=== PATIENT | female | born 1990 | race Caucasian/White ===

== ENCOUNTER 2016-04-17 17:02 | Outpatient (CLI) | payer MEDICAID ==
[2016-04-17 17:37] LABS: APPEARANCE,URINE CLEAR; BILIRUBIN,URINE NEGATIVE (NEGATIVE); GLUCOSE, URINE NEGATIVE (NEGATIVE); KETONES,URINE NEGATIVE (NEGATIVE); LEUKOCYTE ESTERASE,URINE NEGATIVE (NEGATIVE); NITRITE,URINE NEGATIVE (NEGATIVE); PROTEIN,URINE NEGATIVE (NEGATIVE); URINE SPECIFIC GRAVITY 1.003; UROBILINOGEN,URINE NEGATIVE mg/dL (<2.0)
[2016-04-17 17:55] LABS: URINE BARBITURATES SCREEN NEGATIVE; URINE METHADONE SCREEN NEGATIVE; URINE OPIATES LOW NEGATIVE; URINE PHENCYCLIDINE SCREEN NEGATIVE
--- NOTE | 2016-04-17 18:01 | L&D Flow Sheet ---
LD Flowsheet Datetime Report Generated by CPN: 04/17/2016 18:00 Datetime: 04/17/2016 17:53 NBP Sys/Destiny/Mean (mmHg): 96 (QS system process) : 49 (QS system process) : 70 (QS system process) Pulse: 77 (QS system process) Datetime: 04/17/2016 17:22 Level of Consciousness: Fully Conscious (Lucy Bellavance, RNC) DTR's/Clonus: DTRs 2+; No Clonus (Lucy Bellavance, RNC) Headache: Denies (Lucy Bellavance, RNC) Breath Sounds, Left: Clear and Equal (Lucy Bellavance, RNC) Breath Sounds, Right: Clear and Equal (Lucy Bellavance, RNC) Nausea/Vomiting: Denies (Lucy Bellavance, RNC) RUQ Epigastric Pain: Denies (Lucy Bellavance, RNC) Datetime: 04/17/2016 17:21 NBP Sys/Destiny/Mean (mmHg): 93 (QS system process) : 56 (QS system process) : 69 (QS system process) Pulse: 71 (QS system process) Respirations: 16 (Lucy Bellavance, RNC) Temperature (F): 97.5 (Lucy Bellavance, RNC) Temperature (C): 36.4 (QS system process) Temperature Route: Oral (Lucy Bellavance, RNC) Monitor Mode: External (Lucy Bellavance, RNC) Monitor Interventions for UA: [place] Adjusted (Lucy Bellavance, RNC) Resting Tone (Palpate): Relaxed (Lucy Bellavance, RNC) Monitor Mode: External US (Lucy Bellavance, RNC) Monitor Interventions for FHR: Ultrasound Adjusted (Lucy Bellavance, RNC) FHR Baseline Rate : 125 (Lucy Bellavance, RNC) FHR Baseline Changes: No Baseline Change (Lucy Bellavance, RNC) Variability: Moderate 6-25 bpm (Lucy Bellavance, RNC) Accelerations: 10X10 (Lucy Bellavance, RNC) Decelerations: None (Lucy Garcia, KIANC)
[2016-04-17] MEDS ORDERED: HYDROXYZINE PAMOATE 50 MG CAPSULE ONE (18:32)
[2016-04-17] MEDS ORDERED: NIFEDIPINE 10 MG CAPSULE ONE (19:35)
[2016-04-17] MEDS ORDERED: FLUCONAZOLE 100 MG TABLET ONE (19:35)
[2016-04-17] MEDS ORDERED: FLUCONAZOLE 100 MG TABLET PO ONE (19:45)
[2016-04-17] MEDS ORDERED: NIFEDIPINE 10 MG CAPSULE PO ONE (19:45)
--- NOTE | 2016-04-17 20:01 | L&D Flow Sheet ---
LD Flowsheet Datetime Report Generated by CPN: 04/17/2016 20:00 Datetime: 04/17/2016 19:53 NBP Sys/Destiny/Mean (mmHg): 101 (QS system process) : 57 (QS system process) : 74 (QS system process) Pulse: 83 (QS system process) LaborFlag: Antepartum (QS system process) Datetime: 04/17/2016 19:42 Medication Comments: Diflucan 150mg PO; Procardia 10mg PO (Adamaris Errichiello, RN) Datetime: 04/17/2016 19:38 NBP Sys/Destiny/Mean (mmHg): 102 (QS system process) : 57 (QS system process) : 74 (QS system process) Pulse: 81 (QS system process) LaborFlag: Antepartum (QS system process) Datetime: 04/17/2016 19:23 NBP Sys/Destiny/Mean (mmHg): 111 (QS system process) : 59 (QS system process) : 81 (QS system process) Pulse: 75 (QS system process) LaborFlag: Antepartum (QS system process) Datetime: 04/17/2016 19:20 Communication: Provider at Bedside (Lucy Bellavance, RNC) Communication Comments: Orders received for Procardia 10mg PO, Diflucan 150mg PO (Lucy Bellavance, RNC) Datetime: 04/17/2016 19:19 Dilatation (cm): 0.0 (Lucy Bellavance, RNC) Effacement (%): 50 (Lucy Bellavance, RNC) Station: -2 (Lucy Bellavance, RNC) Exam by: Dr Pineda (Lucy Bellavance, RNC) Datetime: 04/17/2016 19:13 Communication Comments: report to md of wet prep results (Lucy Bellavance, RNC) Datetime: 04/17/2016 19:08 NBP Sys/Destiny/Mean (mmHg): 96 (QS system process) : 53 (QS system process) : 69 (QS system process) Pulse: 84 (QS system process) Respirations: 18 (Lucy Bellavance, RNC) Monitor Mode: External (Lucy Bellavance, RNC) Monitor Interventions for UA: [place] Adjusted (Lucy Bellavance, RNC) Frequency (min): 4-6 (Lucy Bellavance, RNC) Quality: Mild (Lucy Bellavance, RNC) Duration (sec): 50-60 (Lucy Bellavance, RNC) Duration Criteria: Less than Two 120 Second Contractions (Lucy Bellavance, RNC) Pattern: Normal: <= 5 Contractions in 10 Minutes (Lucy Bellavance, RNC) Resting Tone (Palpate): Relaxed (Lucy Bellavance, RNC) Monitor Mode: External US (Lucy Bellavance, RNC) Monitor Interventions for FHR: Ultrasound Adjusted (Lucy Bellavance, RNC) FHR Baseline Rate : 125 (Lucy Bellavance, RNC) FHR Baseline Changes: No Baseline Change (Lucy Bellavance, RNC) Variability: Moderate 6-25 bpm (Lucy Bellavance, RNC) Accelerations: 15X15 (Lucy Bellavance, RNC) Decelerations: None (Lucy Bellavance, RNC) Patient Position/Activity: Semi-Fowlers (Lucy Bellavance, RNC) Comfort Measures: Breathing/Relaxation (Lucy Bellavance, RNC) LaborFlag: Antepartum (QS system process) Datetime: 04/17/2016 18:53 NBP Sys/Destiny/Mean (mmHg): 102 (QS system process) : 57 (QS system process) : 76 (QS system process) Pulse: 71 (QS system process) LaborFlag: Antepartum (QS system process) Datetime: 04/17/2016 18:39 Respirations: 18 (Lucy Bellavance, RNC) Monitor Mode: External (Lucy Bellavance, RNC) Monitor Interventions for UA: [place] Adjusted (Lucy Bellavance, RNC) Frequency (min): 4-6 (Lucy Bellavance, RNC) Quality: Mild (Lucy Bellavance, RNC) Duration (sec): 50-60 (Lucy Bellavance, RNC) Duration Criteria: Less than Two 120 Second Contractions (Lucy Bellavance, RNC) Pattern: Normal: <= 5 Contractions in 10 Minutes (Lucy Bellavance, RNC) Resting Tone (Palpate): Relaxed (Lucy Bellavance, RNC) Monitor Mode: External US (Lucy Bellavance, RNC) Monitor Interventions for FHR: Ultrasound Adjusted (Lucy Bellavance, RNC) FHR Baseline Rate : 125 (Lucy Bellavance, RNC) FHR Baseline Changes: No Baseline Change (Lucy Bellavance, RNC) Variability: Moderate 6-25 bpm (Lucy Bellavance, RNC) Accelerations: 15X15 (Lucy Bellavance, RNC) Decelerations: None (Lucy Bellavance, RNC) Pain Assessment Comments: crampy (Lucy Bellavance, RNC) Vaginal Exam Comments: spec exam done for wet prep (Lucy Bellavance, RNC) Analgesics/Sedatives: vistiril 50 mg po (Lucy Bellavance, RNC) Procedures: Sterile Speculum Exam (Lucy Bellavance, RNC) Patient Position/Activity: Semi-Fowlers (Lucy Bellavance, RNC) Comfort Measures: Breathing/Relaxation (Lucy Bellavance, RNC) LaborFlag: Antepartum (QS system process) Datetime: 04/17/2016 18:38 NBP Sys/Destiny/Mean (mmHg): 94 (QS system process) : 56 (QS system process) : 70 (QS system process) Pulse: 84 (QS system process) LaborFlag: Antepartum (QS system process) Datetime: 04/17/2016 18:22 NBP Sys/Destiny/Mean (mmHg): 100 (QS system process) : 58 (QS system process) : 75 (QS system process) Pulse: 78 (QS system process) LaborFlag: Antepartum (QS system process) Datetime: 04/17/2016 18:07 NBP Sys/Destiny/Mean (mmHg): 99 (QS system process) : 55 (QS system process) : 72 (QS system process) Pulse: 71 (QS system process) LaborFlag: Antepartum (QS system process)
[2016-04-17] MEDS ORDERED: ZOLPIDEM TARTRATE 5 MG TABLET PO ONE (21:14)
[2016-04-17] MEDS ORDERED: ZOLPIDEM TARTRATE 5 MG TABLET ONE (21:19)
[2016-04-18] MEDS ORDERED: FLUCONAZOLE 100 MG TABLET PO SCH (10:00)
--- NOTE | 2016-04-26 10:05 | Non Stress Test Report ---
Non Stress Test Datetime Report Generated by CPN: 04/26/2016 10:05 DEMOGRAPHIC Test Number: 1 EGA NST: 34.5 INDICATION Indication for Study: Ordered by Provider URINE RESULTS Urine Protein, NST: Negative Urine Ketones - NST: Negative Urine Glucose - NST: Negative Urine Blood - NST: Negative MONITORING Monitor Explained: Monitor Explained; Test Explained; Patient Verbalized Understanding Time on Monitor: 04/17/2016 17:18 Time off Monitor: 04/17/2016 21:12 NST Duration: 234 NST INTERVENTIONS NST Interventions: PO Hydration; Other Physician Notified NST: Dr Neilsen BABY A: [id number] BABY A Movement : Present Contraction Frequency : irregular FHR Baseline : 145 Accelerations : 15X15 Decelerations : None Variability : Moderate 6-25bpm NST Review: Meets Criteria for Reactive NST NST Review and Verified By : Magalis Ivy RN NST Results: Reactive NST REPORT Report Trigger: Send Report
== END 2016-04-17 21:28 | disposition home or self-care (01) ==
LOC: LC 17:02
PROVIDERS: ATTEND Specialist
PROC: 4A1HXCZ Monitoring of Products of Conception, Cardiac Rate, External Approach (ICD-10-PCS; principal; 2016-04-17)
DX: Z34.93 Encounter for supervision of normal pregnancy, unspecified, third trimester (principal); Z36 Encounter for antenatal screening of mother; Z3A.34 34 weeks gestation of pregnancy
CPT/HCPCS: 59025; 87210; 81001; 80307; J3490 ×4

== ENCOUNTER 2016-04-26 10:07 | Inpatient (IN) | payer MEDICAID ==
[2016-04-26] MEDS ORDERED: RINGERS SOLUTION,LACTATED 1,000 ML IV ONE (10:33)
[2016-04-26 11:04] LABS: APPEARANCE,URINE CLEAR; BILIRUBIN,URINE NEGATIVE (NEGATIVE); GLUCOSE, URINE NEGATIVE (NEGATIVE); KETONES,URINE TRACE mg/dL (NEGATIVE); LEUKOCYTE ESTERASE,URINE NEGATIVE (NEGATIVE); NITRITE,URINE NEGATIVE (NEGATIVE); PROTEIN,URINE NEGATIVE (NEGATIVE); URINE SPECIFIC GRAVITY 1.015; UROBILINOGEN,URINE NEGATIVE mg/dL (<2.0)
[2016-04-26] MEDS ORDERED: HYDROXYZINE PAMOATE 50 MG CAPSULE PO ONE (11:09)
[2016-04-26] MEDS ORDERED: HYDROXYZINE PAMOATE 50 MG CAPSULE ONE (11:13)
[2016-04-26 11:25] LABS: URINE BARBITURATES SCREEN NEGATIVE; URINE METHADONE SCREEN NEGATIVE; URINE OPIATES LOW NEGATIVE; URINE PHENCYCLIDINE SCREEN NEGATIVE
--- NOTE | 2016-04-26 12:01 | L&D Flow Sheet ---
LD Flowsheet Datetime Report Generated by CPN: 04/26/2016 12:00 Datetime: 04/26/2016 11:24 Respirations: 16 (Pily Gilberto, RN) Patient Care IV/Blood Work: IV Infusing per Order; New IV Bag Hung; IV Bag Number @ 2 (Pily Gilberto, RN) LaborFlag: Antepartum (QS system process) Datetime: 04/26/2016 11:23 Vital Signs NBP Sys/Destiny/Mean (mmHg): 111 (QS system process) : 56 (QS system process) : 80 (QS system process) Pulse: 77 (QS system process) LaborFlag: Antepartum (QS system process) Datetime: 04/26/2016 11:19 Vaginal Bleeding: Small (Pily Macias RN) Vaginal Exam Comments: small amt of dark red blood noted on peripad (Pily Macias RN) Hygiene: Yuli Care; Peripad Changed (Pily Macias RN) I/O Interventions: Up to BR (Pily Gilberto, RN) Datetime: 04/26/2016 11:16 Medications Antiemetics/Antacids: Vistaril (mg) @ 50mg PO (Pily Gilberto, RN) Datetime: 04/26/2016 11:10 Communication Communication Comments: Dr Meng at [facility] reviewed. Plan of care discussed. Orders received for Vistaril 50mg PO x 1 dose now. (Pily Macias, RN) Datetime: 04/26/2016 11:00 Uterine Activity Monitor Mode: External; Palpation (Pily Macias, RN) Frequency (min): 2-3 (Pily Macias RN) Quality: Mild/Moderate (Pily Macias RN) Duration (sec): 70-90 (Pily Macias, RN) Resting Tone (Palpate): Relaxed (Pily Macias, RN) Assessment A Monitor Mode: External US (Pily Macias RN) FHR Baseline Rate : 135 (Pily Macias RN) Variability: Moderate 6-25 bpm (Pily Macias RN) Accelerations: 15X15 (Pily Macias RN) Decelerations: None (Pily Macias RN) Datetime: 04/26/2016 10:44 Vaginal Exam Dilatation (cm): 1.0 (Pily Macias RN) Effacement (%): 50 (Pily Macias RN) Station: -2 (Pily Macias RN) Exam by: Jono Macias RN (Pily Macias RN) Vaginal Bleeding: Small (Pily Gilberto, RN) Cervix, Consistency: Soft (Pily Gilberto, RN) Cervix, Position: Posterior (Pily Gilberto, RN) Datetime: 04/26/2016 10:41 Patient Care IV/Blood Work: IV Started; IV Bolus Started; IV Bag Number @ 1 (Pily Gilberto, RN) Datetime: 04/26/2016 10:35 Frequency (min): 3-5, period like cramping (Pily Macias, RN) Pain Pain Scale: 4 (Pily Gilberto, RN) Pain Presence: Intermittent (Pily Gilberto, RN) Pain Type: Contraction (Pily Gilberto, RN) Pain Location: Abdomen (Pily Gilberto, RN) Pain Goal: 2 (Pily Gilberto, RN) Pain Relief Measures: Comfort Measures (Pily Gilberto, RN) Pain Coping: Talking Through Contractions (Pily Gilberto, RN) Vaginal Bleeding: Moderate (Annotations: multiple small clots) (Pily Gilberto, RN) Maternal Assessment Level of Consciousness: Fully Conscious (Pily Gilberto, RN) Headache: Denies (Pily Gilberto, RN) Nausea/Vomiting: Denies (Pily Gilberto, RN) Teaching Instructional Method: Verbal; Patient Instructed; Family/Support Person Instructed; Verbalized Understanding (Pily Macias RN) Plan of Care: Plan of Care Discussed (Pily Macias RN) Unit Routine: [place] to Room; Call [place]; Bed; Phone/Cell Phone Use; Unit Personnel; Handwashing; Monitoring (Pily Macias RN) LaborFlag: Antepartum (QS system process) Datetime: 04/26/2016 10:26 Vital Signs NBP Sys/Destiny/Mean (mmHg): 117 (QS system process) : 70 (QS system process) : 88 (QS system process) Pulse: 82 (QS system process) Temperature (F): 97.9 (Pily Macias RN) Temperature (C): 36.6 (QS system process) Temperature Route: Oral (Pily Macias RN) LaborFlag: Antepartum (QS system process)
[2016-04-26] MEDS ORDERED: CEFAZOLIN SODIUM 1 GM in DEXTROSE 5%-WATER 50 ML IV PRN (13:00)
[2016-04-26 13:07] LABS: ABSOLUTE EOSINOPHILS # (AUTO) 0.3 10^3/uL (0.0-0.6); ABSOLUTE LYMPHOCYTES (AUTO) 1.5 10^3/uL (0.5-4.7); ABSOLUTE MONOCYTES (AUTO) 0.5 10^3/uL (0.1-1.4); ABSOLUTE NEUT (AUTO) 5.4 10^3/uL (1.7-8.2); BASOPHILS % (AUTO) 0.6 % (0-2); EOSINOPHILS % (AUTO) 3.4 % (0-6); HEMATOCRIT 31.2 % (36.0-47.0); HEMOGLOBIN 10.4 g/dL (12.0-15.5); LYMPHOCYTES % (AUTO) 19.2 % (13-45); MEAN CORPUSCULAR HEMOGLOBIN 29.3 pg (27.0-33.4); MEAN CORPUSCULAR HGB CONC 33.2 g/dL (32.0-36.0); MEAN CORPUSCULAR VOLUME 88 fl (80-97); MONOCYTES % (AUTO) 6.7 % (3-13); RED BLOOD COUNT 3.54 10^6/uL (3.72-5.28); RED CELL DISTRIBUTION WIDTH 14.6 % (11.5-14.0); SEGMENTED NEUTROPHILS % (AUTO) 70.1 % (42-78); WHITE BLOOD COUNT 7.7 10^3/uL (4.0-10.5)
[2016-04-26] MEDS ORDERED: CITRIC ACID/SODIUM CITRATE ORAL SOLN 15 ML UDCUP PO ONE (13:15)
--- NOTE | 2016-04-26 14:01 | L&D Flow Sheet ---
LD Flowsheet Datetime Report Generated by CPN: 04/26/2016 14:00 Datetime: 04/26/2016 13:30 Monitor Mode: External; Palpation (Pily Gilberto, RN) Frequency (min): 3-6 (Pily Gilberto, RN) Quality: Mild/Moderate (Pily Gilberto, RN) Duration (sec): 60-90 (Pily Gilberto, RN) Resting Tone (Palpate): Relaxed (Pily Gilberto, RN) Monitor Mode: External US (Pily Gilberto, RN) FHR Baseline Rate : 135 (Pily Gilberto, RN) Variability: Moderate 6-25 bpm (Pily Gilberto, RN) Accelerations: 15X15 (Pily Gilberto, RN) Decelerations: None (Pily Gilberto, RN) Datetime: 04/26/2016 13:29 Patient Care Comments: Abd clip for c/section (Pily Gilberto, RN) Datetime: 04/26/2016 13:00 Monitor Mode: External; Palpation (Pily Gilberto, RN) Frequency (min): 2-6 (Pily Gilberto, RN) Quality: Mild/Moderate (Pily Gilberto, RN) Duration (sec): 60-90 (Pily Gilberto, RN) Resting Tone (Palpate): Relaxed (Pily Gilberto, RN) Monitor Mode: External US (Pily Gilberto, RN) FHR Baseline Rate : 135 (Pily Gilberto, RN) Variability: Moderate 6-25 bpm (Pily Gilberto, RN) Accelerations: 15X15 (Pily Gilberto, RN) Decelerations: None (Pily Gilberto, RN) Datetime: 04/26/2016 12:58 Patient Care Comments: TEDS/SCD applied (Pily Macias RN) Procedure Type: Repeat c/section w/ BTL (Pily Macias RN) Procedure Verify: Correct Patient Identity; Correct Side and Site are Marked; Accurate Procedure Consent Form; Agreement on Procedure to be Done; Relevant Images and Results are Properly Labeled and Displayed; Addressed Need to Administer Antibiotics or Fluids for Irrigation; Safety Precautions Based on Patient History or Medication Use (Pily Macias RN) Datetime: 04/26/2016 12:47 NBP Sys/Destiny/Mean (mmHg): 104 (QS system process) : 60 (QS system process) : 77 (QS system process) Pulse: 70 (QS system process) Respirations: 18 (Pily Macias RN) LaborFlag: Antepartum (QS system process) Datetime: 04/26/2016 12:44 Communication Comments: Dr Meng called. Report including FHR, UC pattern, SVE, vaginal bleeding, pt has family en route from [facility]. Plan of care discussed. Admit for repeat c/section and BTL. Plan for c/section around 1500 d/t family, or sooner if labor becomes more active. (Pily Macias RN) Datetime: 04/26/2016 12:41 Dilatation (cm): 1.5 (Pily Macias RN) Effacement (%): 50 (Pily Macias RN) Station: -2 (Pily Macias RN) Exam by: Jono Macias RN (Pily Macias RN) Vaginal Bleeding: Small (Pily Macias RN) Cervix, Consistency: Soft (Pily Macias RN) Cervix, Position: Posterior (Pily Macias RN) Datetime: 04/26/2016 12:36 Vaginal Bleeding: Small (Pily Macias RN) Vaginal Exam Comments: Small amt of dark red blood noted on peripad (Pily Macias RN) Hygiene: Yuli Care; Peripad Changed (Pily Macias RN) I/O Interventions: Up to BR (Pily Macias RN) Datetime: 04/26/2016 12:30 Monitor Mode: External; Palpation (Pily Gilberto, RN) Frequency (min): 2-6 (Pily Gilberto, RN) Quality: Mild/Moderate (Pily Gilberto, RN) Duration (sec): 60-90 (Pily Gilberto, RN) Resting Tone (Palpate): Relaxed (Pily Gilberto, RN) Monitor Mode: External US (Pily Gilberto, RN) FHR Baseline Rate : 135 (Pily Gilberto, RN) Variability: Moderate 6-25 bpm (Pily Gilberto, RN) Accelerations: 15X15 (Pily Gilberto, RN) Decelerations: None (Pily Gilberto, RN) Datetime: 04/26/2016 12:00 Monitor Mode: External; Palpation (Pily Gilberto, RN) Frequency (min): 2-3 (Pily Gilberto, RN) Quality: Mild/Moderate (Pily Gilberto, RN) Duration (sec): 60-90 (Pily Gilberto, RN) Resting Tone (Palpate): Relaxed (Pily Gilberto, RN) Monitor Mode: External US (Pily Gilberto, RN) FHR Baseline Rate : 135 (Pily Gilberto, RN) Variability: Moderate 6-25 bpm (Pily Macias RN) Accelerations: 15X15 (Pily Macias RN) Decelerations: None (Pily Macias RN)
[2016-04-26] MEDS: RINGERS SOLUTION,LACTATED 1,000 ML IV PRN ×2 (14:45→15:07)
[2016-04-26] MEDS ORDERED: CEFAZOLIN 1 GM/D5W RTU 1 GM/50 ML RTUPB IV ONE (14:53)
[2016-04-26] MEDS ORDERED: CITRIC ACID/SODIUM CITRATE ORAL SOLN 15 ML UDCUP ONE (14:53)
[2016-04-26] MEDS ORDERED: PHENYLEPHRINE HCL INJ/PF 10 MG/1 ML SDV ONE (15:08)
[2016-04-26] MEDS ORDERED: FENTANYL CITRATE INJ/PF 100 MCG/2 ML AMPUL ONE ×2 (15:08→17:05)
[2016-04-26] MEDS ORDERED: OXYTOCIN/NORMAL SALINE 20 UNIT/1,000 ML RTUINJ ONE (15:08)
[2016-04-26] MEDS ORDERED: OXYTOCIN 10 UNIT/ML VIAL ONE (15:08)
[2016-04-26] MEDS ORDERED: ONDANSETRON HCL INJ/PF 4 MG/2 ML SDV ONE (15:08)
[2016-04-26] MEDS ORDERED: MIDAZOLAM 2 MG/2 ML INJ ONE (15:09)
[2016-04-26] MEDS ORDERED: MEASLES,MUMPS&RUBELLA VACC/PF 0.5 ML VIAL SUBCUT PRN (15:32)
[2016-04-26] MEDS ORDERED: DIPH/PERTUSS(ACELL)/TETANUS VAC/PF 0.5 ML SYR (>=10YO) IM PRN (15:32)
[2016-04-26] MEDS ORDERED: OXYCODONE-ACETAMINOPHEN 5-325 MG TABLET PO PRN (15:32)
[2016-04-26] MEDS ORDERED: SIMETHICONE 80 MG TAB.CHEW PO PRN (15:32)
[2016-04-26] MEDS ORDERED: MORPHINE SULFATE 10 MG/ML INJ IM PRN (15:32)
[2016-04-26] MEDS ORDERED: PROMETHAZINE HCL INJ 25 MG/1 ML VIAL IV PRN ×2 (15:32→16:24)
[2016-04-26] MEDS ORDERED: ACETAMINOPHEN 325 MG TABLET PO PRN (15:32)
[2016-04-26] MEDS ORDERED: OXYTOCIN/NORMAL SALINE 1,000 ML IV PRN (15:32)
[2016-04-26] MEDS ORDERED: ACETAMINOPHEN 100 ML IV PRN (15:32)
[2016-04-26 15:41] LABS: CHLAM PCR NOT DETECTED (NOT DETECT)
--- NOTE | 2016-04-26 16:01 | L&D Flow Sheet ---
LD Flowsheet Datetime Report Generated by CPN: 04/26/2016 16:00 Datetime: 04/26/2016 15:47 Procedure Type: Repeat c/section. (Liliamdionisio Perez RN) Procedure Verify: Correct Patient Identity; Correct Side and Site are Marked; Accurate Procedure Consent Form; Agreement on Procedure to be Done; Correct Patient Position (Liliam Perez, RN) Datetime: 04/26/2016 15:02 Anesthesia Comments: Dr Lawrence at bedside. (Pily Gilberto, RN) Datetime: 04/26/2016 15:01 Antibiotics: Ancef IV (Gm) @ 1gram IVPB (Pily Gilberto, RN) Datetime: 04/26/2016 15:00 Monitor Mode: External; Palpation (Pily Gilberto, RN) Frequency (min): 2-5 (Pily Gilberto, RN) Quality: Mild/Moderate (Pily Gilberto, RN) Duration (sec): 60-100 (Pily Gilberto, RN) Resting Tone (Palpate): Relaxed (Pily Gilberto, RN) Monitor Mode: External US (Pily Gilberto, RN) FHR Baseline Rate : 135 (Pily Gilberto, RN) Variability: Moderate 6-25 bpm (Pily Gilberto, RN) Accelerations: 15X15 (Pily Gilberto, RN) Decelerations: None (Pily Gilberto, RN) Datetime: 04/26/2016 14:56 Antiemetics/Antacids: Bicitra 15 ml PO (Pily Macias RN) Procedure Type: Repeat c/section, BTL, Spinal anesthesia (Pily Macias RN) Procedure Verify: Correct Patient Identity; Correct Side and Site are Marked; Accurate Procedure Consent Form; Agreement on Procedure to be Done; Relevant Images and Results are Properly Labeled and Displayed; Addressed Need to Administer Antibiotics or Fluids for Irrigation; Safety Precautions Based on Patient History or Medication Use (Pily Macias RN) Anesthesia Plans: Spinal (Pily Macias RN) Anesthesia Comments: [employer] at bedside. Anesthesia plans discussed. Conset for Spinal anesthesia for c/section. (Pily Macias RN) Datetime: 04/26/2016 14:45 IV/Blood Work: IV Bolus Started (Pily Macias RN) Datetime: 04/26/2016 14:30 Monitor Mode: External; Palpation (Pily Gilberto, RN) Frequency (min): 2-7 (Pily Gilberto, RN) Quality: Mild/Moderate (Pily Gilberto, RN) Duration (sec): 60-100 (Pily Gilberto, RN) Resting Tone (Palpate): Relaxed (Pily Gilberto, RN) Monitor Mode: External US (Pily Gilberto, RN) FHR Baseline Rate : 135 (Pily Gilberto, RN) Variability: Moderate 6-25 bpm (Pily Gilberto, RN) Accelerations: 15X15 (Pily Gilberto, RN) Decelerations: None (Pily Gilberto, RN) Datetime: 04/26/2016 14:00 Monitor Mode: External; Palpation (Pily Gilberto, RN) Frequency (min): 4-6 (Pily Gilberto, RN) Quality: Mild/Moderate (Pily Gilberto, RN) Duration (sec): 60-90 (Pily Gilberto, RN) Resting Tone (Palpate): Relaxed (Pily Gilberto, RN) Monitor Mode: External US (Pily Gilberto, RN) FHR Baseline Rate : 135 (Pily Gilberto, RN) Variability: Moderate 6-25 bpm (Pily Gilberto, RN) Accelerations: 15X15 (Pily Gilberto, RN) Decelerations: None (Pily Gilberto, RN)
[2016-04-26] MEDS ORDERED: ONDANSETRON HCL INJ/PF 4 MG/2 ML SDV IV PRN (16:24)
[2016-04-26] MEDS ORDERED: DIPHENHYDRAMINE HCL 50 MG/ML VIAL IV PRN (16:24)
[2016-04-26] MEDS ORDERED: FENTANYL CITRATE INJ/PF 100 MCG/2 ML AMPUL IV PRN ×2 (16:24)
[2016-04-26] MEDS ORDERED: MORPHINE SULFATE 10 MG/ML INJ IV PRN (16:32)
[2016-04-26] MEDS ORDERED: MEPERIDINE HCL/PF INJ 25 MG/1 ML DISP.SYRIN ONE (17:06)
[2016-04-26] MEDS: FENTANYL CITRATE INJ/PF 100 MCG/2 ML AMPUL IV PRN ×2 (17:14→17:55)
[2016-04-26] MEDS: MEPERIDINE HCL/PF INJ 25 MG/1 ML DISP.SYRIN IV PRN ×2 (17:17→17:55)
--- NOTE | 2016-04-26 17:37 | Delivery Summary ---
Del Sum A-C Datetime Report Generated by CPN: 04/26/2016 17:37 ADMISSION DATA Chief Complaint: Uterine Contractions Indication for Induction: Not Applicable Admission Impression: , Intrauterine ; Intact Membranes; Repeat Section DELIVERY PERSONNEL Delivery Doctor:: Elidia Meng MD Anesthesiologist:: Dax Lawrence MD DISCOTHEQUE DANCER:: Raghav Ayala CRNA Labor and Delivery Nurse:: Liliam Perez RN Quill Reamer:: Pily Macias RN Glazier Helper:: Adrianna Gomez MD Nursery Nurse:: Anel Munoz Nursery Nurse:: Karolyn Costa RN Student Observers:: Blanco Manuel, SN Environmental Lawyer/ELECTRONICS ENGINEERING MANAGER: Amirabony Baca, JAD Environmental Lawyer/ELECTRONICS ENGINEERING MANAGER: Guanakito Martínez, JAD Additional Personnel: : Crystal Hua, RN MATERNAL INFORMATION Delivery Anesthesia: Spinal Medications After Delivery: Pitocin Drip 20 Units/1000ml NSS Maternal Complications: None LABOR SUMMARY EDC: 05/21/2016 00:00 No. Babies in Womb: 1 Attempted: No Labor Anesthesia: None LABOR INFORMATION Reason for Induction: Not Applicable Onset of Labor: 04/26/2016 09:00 Oxytocin: N/A Group B Beta Strep: Unknown Antibiotics # of Doses: 0 Steroids Given: None Reason Steroids Not Administered: Not Applicable MEMBRANES Membranes Rupture Method: Artificial Rupture of Membranes: 04/26/2016 15:56 Length of Rupture (hr): 0.00 Amniotic Fluid Color: Clear Amniotic Fluid Amount: Moderate Amniotic Fluid Odor: Normal STAGES OF LABOR Stage 3 hr: 0 Stage 3 min: 1 Total Time in Labor hr: 6 Total Time in Labor min: 57 VAGINAL DELIVERY Sponge Count Correct: N/A CSECTION DELIVERY Primary Indication: Repeat Elective CSection Urgency: Non-Scheduled CSection Incidence: Repeat Labor: Labor Elective: Nonelective CSection Incision: Lower Uterine Transverse BABY A INFORMATION Infant Delivery Date/Time: 04/26/2016 15:56 Method of Delivery: Born in Route : No : N/A Forceps: N/A Vacuum Extraction: N/A Shoulder Dystocia : No PRESENTATION/POSITION BABY A Presentation: Cephalic Cephalic Presentation: Vertex Vertex Position: Left Occipital Anterior Breech Presentation: N/A PLACENTA INFORMATION BABY A Placenta Delivery Time : 04/26/2016 15:57 Placenta Method of Delivery: Manual Removal Placenta Status: Delivered SCORES BABY A Heart Rate 1 min: >100 bpm Resp Effort 1 min: Good Cry Reflex Irritability 1 min: Cough or Sneeze or Pulls Away Muscle Tone 1 min: Some Flexion of Extremities Color 1 min: Blue/Pale SCORE 1 MIN: 7 Heart Rate 5 min: >100 bpm Resp Effort 5 min: Good Cry Reflex Irritability 5 min: Cough or Sneeze or Pulls Away Muscle Tone 5 min: Active Motion Color 5 min: Body Dorothy, Extremities Blue Resuscitation Effort 5 min: Tactile Stimulation SCORE 5 MIN: 9 INFANT INFORMATION BABY A Gestational Age at Delivery: 36.3 Gestational Status: Late - 34- 36.6 Weeks Outcome : Liveborn Condition : Stable Infant Sex: Male IDENTIFICATION BABY A ID Band Number: [id number] Infant WEIGHT/LENGTH BABY A Infant Birthweight (gm): 3110 Weight (lb): 6 Weight (oz): 14 Infant Length (in): 20.00 Infant Length (cm): 50.80 CORD INFORMATION BABY A No. Cord Vessels: 3 Nuchal Cord : N/A Cord Blood Taken: Yes-For Eval (Mom's Blood Type - or O+) Suction: Mouth; Nose ASSESSMENT BABY A Complications: Other Infant Complications- Other: Physical Findings at Delivery: Skin Tags Respirations: Appears Normal Skin to Skin: No Glazier Helper/ALS Called : Yes Infant Care By: Jono Costa RN and Dr. Chavira Transferred To: Nursery BABY B INFORMATION : N/A
[2016-04-26] MEDS ORDERED: IBUPROFEN 800 MG TABLET PO SCH (18:00)
[2016-04-26] MEDS: DOCUSATE SODIUM 100 MG CAPSULE PO SCH (18:02)
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
--- NOTE | 2016-04-26 19:01 | L&D Flow Sheet ---
LD Flowsheet Datetime Report Generated by CPN: 04/26/2016 19:00 Datetime: 04/26/2016 18:26 NBP Sys/Destiny/Mean (mmHg): 95 (QS system process) : 52 (QS system process) : 71 (QS system process) Pulse: 67 (QS system process) Pulse: 69 (QS system process) Respirations: 16 (Pily Macias RN) SpO2 (%): 100 (QS system process) Temperature (F): 97.8 (Pily Macias RN) Temperature (C): 36.6 (QS system process) Temperature Route: Oral (Pily Macias RN) Pain Pain Scale: 1 (Pily Gilberto, RN) Pain Presence: Constant (Pily Gilberto, RN) Pain Type: Dull (Pily Gilberto, RN) Pain Location: Abdomen (Pily Gilberto, RN) Pain Goal: 2 (Pily Gilberto, RN) Pain Relief Measures: Comfort Measures (Pily Gilberto, RN) Datetime: 04/26/2016 18:21 Pulse: 65 (QS system process) SpO2 (%): 100 (QS system process) Datetime: 04/26/2016 18:16 Pulse: 71 (QS system process) SpO2 (%): 100 (QS system process) Datetime: 04/26/2016 18:12 NBP Sys/Destiny/Mean (mmHg): 98 (QS system process) : 53 (QS system process) : 70 (QS system process) Pulse: 71 (QS system process) Respirations: 16 (Pily Macias, RN) Pain Pain Scale: 1 (Pily Gilberto, RN) Pain Presence: Constant (Pily Gilberto, RN) Pain Type: Dull (Pily Gilberto, RN) Pain Location: Abdomen (Pily Gilberto, RN) Pain Goal: 2 (Pily Gilberto, RN) Pain Relief Measures: Comfort Measures (Pily Gilberto, RN) Datetime: 04/26/2016 18:11 Pulse: 71 (QS system process) SpO2 (%): 100 (QS system process) Datetime: 04/26/2016 18:06 Pulse: 70 (QS system process) SpO2 (%): 99 (QS system process) Datetime: 04/26/2016 18:01 Pulse: 73 (QS system process) SpO2 (%): 99 (QS system process) Datetime: 04/26/2016 17:58 Pulse: 75 (QS system process) SpO2 (%): 93 (QS system process) Datetime: 04/26/2016 17:56 NBP Sys/Destiny/Mean (mmHg): 95 (QS system process) : 51 (QS system process) : 70 (QS system process) Pulse: 70 (QS system process) Pulse: 68 (QS system process) Respirations: 16 (Pily Macias RN) SpO2 (%): 98 (QS system process) Pain Pain Scale: 2 (Pily Macias, KIAN) Pain Presence: Constant (Pily Macias, KIAN) Pain Type: Dull (Pily Macias, KIAN) Pain Location: Abdomen (Pily Macias RN) Pain Goal: 2 (Pily Macias RN) Pain Relief Measures: Pain Medication Given; Comfort Measures (Pily Macias, KIAN) Datetime: 04/26/2016 17:51 Pulse: 75 (QS system process) SpO2 (%): 98 (QS system process) Datetime: 04/26/2016 17:46 Pulse: 69 (QS system process) SpO2 (%): 98 (QS system process) Datetime: 04/26/2016 17:41 NBP Sys/Destiny/Mean (mmHg): 108 (QS system process) : 51 (QS system process) : 73 (QS system process) Pulse: 81 (QS system process) Pulse: 77 (QS system process) Respirations: 14 (Pily Macias RN) SpO2 (%): 97 (QS system process) Pain Pain Scale: 1 (Pily Gilberto, RN) Pain Presence: Constant (Pily Gilberto, RN) Pain Type: Dull (Pily Gilberto, RN) Pain Location: Abdomen (Pily Gilberto, RN) Pain Goal: 2 (Pily Gilberto, RN) Pain Relief Measures: Comfort Measures (Pily Gilberto, RN) Datetime: 04/26/2016 17:36 Pulse: 70 (QS system process) SpO2 (%): 98 (QS system process) Datetime: 04/26/2016 17:31 Pulse: 80 (QS system process) SpO2 (%): 98 (QS system process) Datetime: 04/26/2016 17:29 NBP Sys/Destiny/Mean (mmHg): 106 (QS system process) : 55 (QS system process) : 79 (QS system process) Pulse: 72 (QS system process) Respirations: 18 (Pily Gilberto, RN) Pain Pain Scale: 1 (Pily Macias, KIAN) Pain Presence: Constant (Pily Macias, KIAN) Pain Type: Dull (Pily Macias, KIAN) Pain Location: Abdomen (Pily Macias, RN) Pain Goal: 2 (Pily Gilberto, RN) Pain Relief Measures: Comfort Measures (Pily Macias, RN) Datetime: 04/26/2016 17:26 Pulse: 75 (QS system process) SpO2 (%): 98 (QS system process) Datetime: 04/26/2016 17:21 Pulse: 67 (QS system process) SpO2 (%): 97 (QS system process) Datetime: 04/26/2016 17:16 Pulse: 69 (QS system process) SpO2 (%): 97 (QS system process) Datetime: 04/26/2016 17:11 NBP Sys/Destiny/Mean (mmHg): 91 (QS system process) : 51 (QS system process) : 63 (QS system process) Pulse: 67 (QS system process) Pulse: 71 (QS system process) Respirations: 16 (Pily Macias, RN) SpO2 (%): 97 (QS system process) Temperature (F): 97.7 (Pily Macias, RN) Temperature (C): 36.5 (QS system process) Temperature Route: Oral (Pily Macias, RN) Pain Pain Scale: 2 (Pily Macias, RN) Pain Presence: Constant (Pily Macias, RN) Pain Type: Dull (Pily Macias, RN) Pain Location: Abdomen (Pily Macias, RN) Pain Goal: 2 (Pily Gilberto, RN) Pain Relief Measures: Pain Medication Given; Comfort Measures (Pily Gilberto, RN) Datetime: 04/26/2016 17:06 Pulse: 77 (QS system process) SpO2 (%): 97 (QS system process) Datetime: 04/26/2016 17:01 Pulse: 80 (QS system process) SpO2 (%): 97 (QS system process) Datetime: 04/26/2016 16:56 NBP Sys/Destiny/Mean (mmHg): 93 (QS system process) : 53 (QS system process) : 67 (QS system process) Pulse: 75 (QS system process) Pulse: 73 (QS system process) SpO2 (%): 97 (QS system process) Datetime: 04/26/2016 16:51 NBP Sys/Destiny/Mean (mmHg): 95 (QS system process) : 54 (QS system process) : 71 (QS system process) Pulse: 71 (QS system process) Pulse: 70 (QS system process) SpO2 (%): 100 (QS system process) Datetime: 04/26/2016 16:45 NBP Sys/Destiny/Mean (mmHg): 107 (QS system process) : 49 (QS system process) : 70 (QS system process) Pulse: 80 (QS system process) Datetime: 04/26/2016 16:41 Pulse: 83 (QS system process) Respirations: 16 (Pily Macias RN) SpO2 (%): 100 (QS system process) Temperature (F): 97.6 (Pliy Macias RN) Temperature (C): 36.4 (QS system process) Temperature Route: Oral (Pily Macias RN) Pain Pain Scale: 2 (Pily Gilberto, RN) Pain Presence: Constant (Pily Gilberto, RN) Pain Type: Dull (Pily Gilberto, RN) Pain Location: Abdomen (Pily Gilberto, RN) Pain Goal: 2 (Pily Gilberto, RN) Pain Relief Measures: Comfort Measures (Pily Gilberto, RN) Datetime: 04/26/2016 16:40 Vital Signs Stage of : Recovery (Pily Gilberto, RN) Datetime: 04/26/2016 16:21 Vital Signs Stage of : Recovery (Liliam Perez, RN) Datetime: 04/26/2016 15:47 Procedure TIME OUT Procedure Type: Repeat c/section. (Liliam Perez, RN) Procedure Verify: Correct Patient Identity; Correct Side and Site are Marked; Accurate Procedure Consent Form; Agreement on Procedure to be Done; Correct Patient Position (Liliam Perez, RN) Datetime: 04/26/2016 15:25 Uterine Activity Monitor Mode: External; Palpation (Liliam Perez, RN) Frequency (min): 2-6 (Liliam Perez, RN) Quality: Mild/Moderate (Liliam Perez, RN) Duration (sec): 60-100 (Liliam Perez, RN) Resting Tone (Palpate): Relaxed (Liliam Perez, RN) Assessment A Monitor Mode: External US (Liliam Perez, RN) FHR Baseline Rate : 135 (Liliam Perez, RN) Variability: Moderate 6-25 bpm (Liliam Perez, RN) Accelerations: 15X15 (Liliam Perez, RN) Decelerations: None (Liliam Perez RN) Comments: Monitors removed. Pt. to OR for repeat section. (Liliam Perez, RN) Datetime: 04/26/2016 15:02 Anesthesia Comments: Dr Lawrence at bedside. (Pily Macias RN) Datetime: 04/26/2016 15:01 Medications Antibiotics: Ancef IV (Gm) @ 1gram IVPB (Pily Macias, RN) Datetime: 04/26/2016 15:00 Uterine Activity Monitor Mode: External; Palpation (Pily Gilberto, RN) Frequency (min): 2-5 (Pily Gilberto, RN) Quality: Mild/Moderate (Pily Gilberto, RN) Duration (sec): 60-100 (Pily Macias, RN) Resting Tone (Palpate): Relaxed (Pily Gilberto, RN) Assessment A Monitor Mode: External US (Pily Macias, RN) FHR Baseline Rate : 135 (Pily Macias, RN) Variability: Moderate 6-25 bpm (Pily Macias, RN) Accelerations: 15X15 (Pilyteri Macias, RN) Decelerations: None (Pily Gilberto, RN) Datetime: 04/26/2016 14:56 Antiemetics/Antacids: Bicitra 15 ml PO (Pily Macias, RN) Procedure TIME OUT Procedure Type: Repeat c/section, BTL, Spinal anesthesia (Pily Macias RN) Procedure Verify: Correct Patient Identity; Correct Side and Site are Marked; Accurate Procedure Consent Form; Agreement on Procedure to be Done; Relevant Images and Results are Properly Labeled and Displayed; Addressed Need to Administer Antibiotics or Fluids for Irrigation; Safety Precautions Based on Patient History or Medication Use (Pily Macias, RN) Anesthesia Anesthesia Plans: Spinal (Pily Macias, RN) Anesthesia Comments: [employer] INSTRU[employer] at bedside. Anesthesia plans discussed. Conset for Spinal anesthesia for c/section. (Pily Macias, RN) Datetime: 04/26/2016 14:45 Patient Care IV/Blood Work: IV Bolus Started (Pily Maicas, RN) Datetime: 04/26/2016 14:30 Uterine Activity Monitor Mode: External; Palpation (Pily Gilberto, RN) Frequency (min): 2-7 (Pily Gilberto, RN) Quality: Mild/Moderate (Pily Gilberto, RN) Duration (sec): 60-100 (Pily Gilberto, RN) Resting Tone (Palpate): Relaxed (Pily Gilberto, RN) Assessment A Monitor Mode: External US (Pily Gilberto, RN) FHR Baseline Rate : 135 (Pily Gilberto, RN) Variability: Moderate 6-25 bpm (Pily Gilberto, RN) Accelerations: 15X15 (Pily Gilberto, RN) Decelerations: None (Pily Gilberto, RN) Datetime: 04/26/2016 14:00 Uterine Activity Monitor Mode: External; Palpation (Pily Gilberto, RN) Frequency (min): 4-6 (Pily Gilberto, RN) Quality: Mild/Moderate (Pily Gilberto, RN) Duration (sec): 60-90 (Pily Gilberto, RN) Resting Tone (Palpate): Relaxed (Pily Gilberto, RN) Assessment A Monitor Mode: External US (Pily Gilberto, RN) FHR Baseline Rate : 135 (Pily Gilberto, RN) Variability: Moderate 6-25 bpm (Pily Gilberto, RN) Accelerations: 15X15 (Pily Gilberto, RN) Decelerations: None (Pily Macias, RN) Datetime: 04/26/2016 13:58 Vaginal Bleeding: Small (Pily Macias RN) Vaginal Exam Comments: small amt of dark red blood noted on peripad (Pily Macias, KIAN) Hygiene: Yuli Care; Peripad Changed (Pily Macias RN) I/O Interventions: Up to BR (Pily Macias RN) Datetime: 04/26/2016 13:30 Uterine Activity Monitor Mode: External; Palpation (Pily Gilberto, RN) Frequency (min): 3-6 (Pily Gilberto, RN) Quality: Mild/Moderate (Pily Gilberto, RN) Duration (sec): 60-90 (Pily Gilberto, RN) Resting Tone (Palpate): Relaxed (Pily Gilberto, RN) Assessment A Monitor Mode: External US (Pily Gilberto, RN) FHR Baseline Rate : 135 (Pily Gilberto, RN) Variability: Moderate 6-25 bpm (Pily Gilberto, RN) Accelerations: 15X15 (Pily Gilberto, RN) Decelerations: None (Pily Gilberto, RN) Datetime: 04/26/2016 13:29 Patient Care Comments: Abd clip for c/section (Pily Gilberto, RN) Datetime: 04/26/2016 13:00 Uterine Activity Monitor Mode: External; Palpation (Pily Gilberto, RN) Frequency (min): 2-6 (Pily Gilberto, RN) Quality: Mild/Moderate (Pily Gilberto, RN) Duration (sec): 60-90 (Pily Gilberto, RN) Resting Tone (Palpate): Relaxed (Pily Gilberto, RN) Assessment A Monitor Mode: External US (Pily Gilberto, RN) FHR Baseline Rate : 135 (Pily Gilberto, RN) Variability: Moderate 6-25 bpm (Pily Gilberto, RN) Accelerations: 15X15 (Pily Gilberto, RN) Decelerations: None (Pily Gilberto, RN) Datetime: 04/26/2016 12:58 Patient Care Comments: TEDS/SCD applied (Pily Macias, RN) Procedure TIME OUT Procedure Type: Repeat c/section w/ BTL (Pily Macias RN) Procedure Verify: Correct Patient Identity; Correct Side and Site are Marked; Accurate Procedure Consent Form; Agreement on Procedure to be Done; Relevant Images and Results are Properly Labeled and Displayed; Addressed Need to Administer Antibiotics or Fluids for Irrigation; Safety Precautions Based on Patient History or Medication Use (Pily Macias RN) Datetime: 04/26/2016 12:47 NBP Sys/Destiny/Mean (mmHg): 104 (QS system process) : 60 (QS system process) : 77 (QS system process) Pulse: 70 (QS system process) Respirations: 18 (Pily Macias RN) LaborFlag: Antepartum (QS system process) Datetime: 04/26/2016 12:44 Communication Communication Comments: Dr Meng called. Report including FHR, UC pattern, SVE, vaginal bleeding, pt has family en route from [facility]. Plan of care discussed. Admit for repeat c/section and BTL. Plan for c/section around 1500 d/t family, or sooner if labor becomes more active. (Pily Macias RN) Datetime: 04/26/2016 12:41 Vaginal Exam Dilatation (cm): 1.5 (Pily Macias RN) Effacement (%): 50 (Pily Macias RN) Station: -2 (Pily Macias RN) Exam by: Jono Macias RN (Pily Macias RN) Vaginal Bleeding: Small (Pily aMcias RN) Cervix, Consistency: Soft (Pily Macias RN) Cervix, Position: Posterior (Pily Macias RN) Datetime: 04/26/2016 12:36 Vaginal Bleeding: Small (Pily Macias RN) Vaginal Exam Comments: Small amt of dark red blood noted on peripad (Pily Macias RN) Hygiene: Yuli Care; Peripad Changed (Pily Macias RN) I/O Interventions: Up to BR (Pily Macias RN) Datetime: 04/26/2016 12:30 Uterine Activity Monitor Mode: External; Palpation (Pily Gilberto, RN) Frequency (min): 2-6 (Pily Gilberto, RN) Quality: Mild/Moderate (Pily Gilberto, RN) Duration (sec): 60-90 (Pily Gilberto, RN) Resting Tone (Palpate): Relaxed (Pily Gilberto, RN) Assessment A Monitor Mode: External US (Pily Gilberto, RN) FHR Baseline Rate : 135 (Pily Gilberto, RN) Variability: Moderate 6-25 bpm (Pily Gilberto, RN) Accelerations: 15X15 (Pily Gilberto, RN) Decelerations: None (Pily Gilberto, RN) Datetime: 04/26/2016 12:00 Uterine Activity Monitor Mode: External; Palpation (Pily Gilberto, RN) Frequency (min): 2-3 (Pily Gilberto, RN) Quality: Mild/Moderate (Pily Gilberto, RN) Duration (sec): 60-90 (Pily Gilberto, RN) Resting Tone (Palpate): Relaxed (Pily Gilberto, RN) Assessment A Monitor Mode: External US (Pily Gilberto, RN) FHR Baseline Rate : 135 (Pily Gilberto, RN) Variability: Moderate 6-25 bpm (Pily Gilberto, RN) Accelerations: 15X15 (Pily Gilberto, RN) Decelerations: None (Pily Gilberto, RN) Datetime: 04/26/2016 11:55 Communication Communication Comments: Dr Taqueria reviewed EFM. Will reevaluate cervix and continue to monitor. (Pily Gilberto, RN) Datetime: 04/26/2016 11:30 Uterine Activity Monitor Mode: External; Palpation (Pily Gilberto, RN) Frequency (min): 2-6 (Pily Gilberto, RN) Quality: Mild/Moderate (Pily Gilberto, RN) Duration (sec): 60-100 (Pily Gilberto, RN) Resting Tone (Palpate): Relaxed (Pily Gilberto, RN) Assessment A Monitor Mode: External US (Pily Gilberto, RN) FHR Baseline Rate : 135 (Pily Gilberto, RN) Variability: Moderate 6-25 bpm (Pily Gilberto, RN) Accelerations: 15X15 (Pily Gilberto, RN) Decelerations: None (Pily Gilberto, RN) Datetime: 04/26/2016 11:24 Respirations: 16 (Pily Gilberto, RN) Patient Care IV/Blood Work: IV Infusing per Order; New IV Bag Hung; IV Bag Number @ 2 (Pily Gilberto, RN) LaborFlag: Antepartum (QS system process) Datetime: 04/26/2016 11:23 NBP Sys/Destiny/Mean (mmHg): 111 (QS system process) : 56 (QS system process) : 80 (QS system process) Pulse: 77 (QS system process) LaborFlag: Antepartum (QS system process) Datetime: 04/26/2016 11:19 Vaginal Bleeding: Small (Pily Macias, RN) Vaginal Exam Comments: small amt of dark red blood noted on peripad (Pily Macias, RN) Hygiene: Yuli Care; Peripad Changed (Pily Macias, RN) I/O Interventions: Up to BR (Pily Macias, RN) Datetime: 04/26/2016 11:16 Antiemetics/Antacids: Vistaril (mg) @ 50mg PO (Pily Macias, RN) Datetime: 04/26/2016 11:10 Communication Communication Comments: [facility] M[facility] reviewed. Plan of care discussed. Orders received for Vistaril 50mg PO x 1 dose now. (Pily Macias, RN) Datetime: 04/26/2016 11:00 Uterine Activity Monitor Mode: External; Palpation (Pily Macias RN) Frequency (min): 2-3 (Pily Macias, KIAN) Quality: Mild/Moderate (Pily Macias, RN) Duration (sec): 70-90 (Pily Macias, KIAN) Resting Tone (Palpate): Relaxed (Pliy Macias, KIAN) Assessment A Monitor Mode: External US (Pily Gilberto, RN) FHR Baseline Rate : 135 (Pily Gilberto, RN) Variability: Moderate 6-25 bpm (Pily Gilberto, RN) Accelerations: 15X15 (Pily Gilberto, RN) Decelerations: None (Pily Gilberto, RN) Datetime: 04/26/2016 10:44 Vaginal Exam Dilatation (cm): 1.0 (Pily Gilberto, RN) Effacement (%): 50 (Pilyteri Macias, RN) Station: -2 (Pily Gilberto, RN) Exam by: Jono Macias RN (Pily Macias RN) Vaginal Bleeding: Small (Pily Macias RN) Cervix, Consistency: Soft (Pily Macias RN) Cervix, Position: Posterior (Pily Macias RN) Datetime: 04/26/2016 10:41 Patient Care IV/Blood Work: IV Started; IV Bolus Started; IV Bag Number @ 1 (Pily Macias RN) Datetime: 04/26/2016 10:35 Frequency (min): 3-5, period like cramping (Pily Macias, KIAN) Pain Pain Scale: 4 (Pily Macias RN) Pain Presence: Intermittent (Pily Macias RN) Pain Type: Contraction (Pily Macias, RN) Pain Location: Abdomen (Pily Macias, KIAN) Pain Goal: 2 (Pily Macias RN) Pain Relief Measures: Comfort Measures (Pily Macias RN) Pain Coping: Talking Through Contractions (Pily Macias RN) Vaginal Bleeding: Moderate (Annotations: multiple small clots) (Pilyteri Macias, ) Maternal Assessment Level of Consciousness: Fully Conscious (Pily Macias, KIAN) Headache: Denies (Pily Macias, KIAN) Nausea/Vomiting: Denies (Pily Gilberto, KIAN) Teaching Instructional Method: Verbal; Patient Instructed; Family/Support Person Instructed; Verbalized Understanding (Pily Macias RN) Plan of Care: Plan of Care Discussed (Pily Macias RN) Unit Routine: [place] to Room; Call [place]; Bed; Phone/Cell Phone Use; Unit Personnel; Handwashing; Monitoring (iPly Macias RN) LaborFlag: Antepartum (QS system process) Datetime: 04/26/2016 10:26 NBP Sys/Destiny/Mean (mmHg): 117 (QS system process) : 70 (QS system process) : 88 (QS system process) Pulse: 82 (QS system process) Temperature (F): 97.9 (Pily Macias RN) Temperature (C): 36.6 (QS system process) Temperature Route: Oral (Pily Macias RN) LaborFlag: Antepartum (QS system process)
[2016-04-26] MEDS ORDERED: ALBUTEROL SULFATE HFA (90 MCG/PUFF) 8 GM MDI (1 MDI/ER DISP) IH PRN (19:22)
--- NOTE | 2016-04-26 19:43 | OPERATIVE REPORT E ---
Operative Report NAME: LOLIS LAKE : 1990 AGE: 26Y DATE OF SURGERY: 04/26/2016 ROOM: 227 PREOPERATIVE DIAGNOSES: 1. INTRAUTERINE AT 36 WEEKS AND 3 DAYS, LATE IN LABOR. 2. PREVIOUS SECTION X2. 3. UNDESIRED FERTILITY. POSTOPERATIVE DIAGNOSES: 1. INTRAUTERINE AT 36 WEEKS AND 3 DAYS, LATE IN LABOR. 2. PREVIOUS SECTION X2. 3. UNDESIRED FERTILITY. OPERATION: Low transverse hysterotomy section with Huetter tubal ligation. SURGEON: SAMUEL KEMP M.D. ANESTHESIA: Dr. Lawrence with spinal. FINDINGS: Male infant, cephalic presentation, Apgars of 9 and 9. ESTIMATED BLOOD LOSS: 600 mL. SPECIMENS REMOVED: Bilateral fallopian tubes. PROCEDURE IN DETAIL: The patient was taken to the operating room and prepared and draped in a normal sterile fashion in a supine position with a leftward tilt. A transverse skin incision was made with a scalpel and carried through to the underlying layer of fascia. With the same scalpel, the fascia was excised in the midline and extended laterally with Som. The rectus muscle was then sharply dissected from the fascia with Som. The rectus muscle was divided sharply with a Bovie and using hemostats as a guide due to excessive scar tissue. Once the rectus muscle was able to be divided, this was divided and with good visualization of the bladder and the uterus. The bladder blade was inserted and the bladder was held away. The uterus was nicked in the center with a scalpel and the hysterotomy was extended with surgeon finger fracture. The was then delivered atraumatically. The nose and mouth were suctioned with a suction bulb, and the cord was clamped and cut, and the infant was handed off to awaiting pediatricians. Cord blood was collected. The placenta was removed manually. The uterus was exteriorized and cleared of clot and debris, and the hysterotomy was closed with 0 Monocryl in a running locked fashion and a second layer of the same suture was used to imbricate to ensure hemostasis. Attention was then turned to the tubal ligation. The left fallopian tube was grasped with a [place] elevated. The mesosalpinx was then divided with the Bovie and 2 ties of 2-0 chromic tied off a section of fallopian tube. The intermediate section was removed with Metzenbaums and the pedicles were made hemostatic with coagulation. This was repeated on the right fallopian tube without difficulty. The uterus was then returned to the abdomen, and the pedicles were reinspected and found to be hemostatic and the hysterotomy was found to be hemostatic as well. The rectus muscle and peritoneum were reapproximated with a mattress stitch of 2-0 chromic. The fascia was closed with 0 Vicryl. The subcutaneous layer was closed with plain cat gut, and the skin was closed with 4-0 Monocryl. The patient tolerated procedure well. Sponge, lap and needle counts were correct times 2. The patient was taken to recovery in stable condition. DICTATING PHYSICIAN: SAMUEL KEMP M.D. [id number] PHY#: [id number] ID: [id number] JOB#: [id number] ACCT: [id number] cc:SAMUEL KEMP M.D. >
[2016-04-26] MEDS ORDERED: ALBUTEROL SULFATE HFA (90 MCG/PUFF) 200 PUFF/8.5 GM MDI IH ONE (21:14)
[2016-04-26] MEDS ORDERED: CITALOPRAM HYDROBROMIDE 20 MG TABLET ONE (21:14)
[2016-04-26] MEDS ORDERED: FLUTICASONE PROPIONATE HFA 110 MCG/PUFF 12 GM MDI IH ONE (21:15)
[2016-04-26] MEDS: CITALOPRAM HYDROBROMIDE 20 MG TABLET PO SCH (22:10)
[2016-04-26] MEDS: FLUTICASONE PROPIONATE HFA 110 MCG/PUFF 12 GM MDI IH SCH (22:12)
[2016-04-26] MEDS: KETOROLAC TROMETHAMINE INJ/PF 30 MG/1 ML SDV IV SCH (23:07)
[2016-04-26] MEDS: OXYCODONE-ACETAMINOPHEN 5-325 MG TABLET PO PRN (23:08)
[2016-04-27] MEDS: KETOROLAC TROMETHAMINE INJ/PF 30 MG/1 ML SDV IV SCH ×2 (05:54→13:02)
--- NOTE | 2016-04-27 06:01 | L&D Current Admission ---
Current Admit Datetime Report Generated by CPN: 04/27/2016 06:00 ADMISSION INFORMATION Chief Complaint: Contractions; Vaginal Bleeding (04/26/2016 10:35:MAGGIE Harris
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
--- NOTE | 2016-04-27 06:16 | L&D Care Plan ---
LD CARE PLANS Datetime Report Generated by CPN: 04/27/2016 06:16 Datetime: 04/26/2016 12:47 Pain State: Actual (Antonieta Leone RN) Related To: Labor and Delivery Process; Surgical Procedure; Treatment and Procedures; Post (Antonieta Leone RN) Goal(s): Patients Pain will be Assessed and Managed; Patient will Verbalize Adequate Relief of Pain or the Ability to [place] with Current Pain (Antonieta Leone RN) Interventions: Assess Pain Severity on Scale of 0 (None) to 5 (Severe); Assess Type, Location and Intensity of Pain Each Time Client Reports Discomfort and Notify Provider if Unusal Pain Develops; Encourage Proper Breathing and Relaxation Techniques; Offer Alternatives Such as Repositioning, Calm Environment, Massages, Diversional Activities, Ice Pack, Splinting, and Ambulation; Administer Analgesics as Ordered; Assist with Epidural Placement as Appropriate; Evaluate Therapeutic Effectiveness of Medication and Treatments (Antonieta Leone RN) Outcome: Patient will Report Absence or Relief of Pain Consistent with Established Pain Goal (Antonieta Leone RN) Status: Ongoing (Antonieta Leone RN) Outcome: Patient will have a Decrease in Signs and Symptoms of Discomfort (Antonieta Leone RN) Status: Ongoing (Antonieta Leone RN) Outcome: Pain will be Controlled During Procedures (Antonieta Leone RN) Status: Ongoing (Antonieta Leone RN) Anxiety State: Risk For (Antonieta Leone RN) Related To: Surgical Procedure (Antonieta Leone RN) Goal(s): Patient will have Decreased Anxiety and be able to Function at Acceptable Levels (Antonieta Leone RN) Interventions: Assess Verbal and Nonverbal Behavioral Indicators of Anxiety; Assist Patient to Identify and Verbalize Symptoms of Anxiety; Identify and Demonstrate Techniques to Control Anxiety; Assist Patient with Coping Mechanisms to Manage Anxiety; Provide Theraputic Touch for the Patient; Explain to Patient, Using a Calm Reassuring Approach and Nonmedical Terms, All Activities, Procedures, and Concerns; Instruct Patient and Family about Post Discharge Care, Limitations, Symptoms to Report and Resources Available (Antonieta Leone RN) Outcome: Patient will Identify, Verbalize and Demonstrate Techniques to Control Anxiety (Antonieta Leone RN) Status: Ongoing (Antonieta Leone RN) Outcome: Patient's Posture, Facial Expressions, Gestures and Activity Level will Reflect Decreased Anxiety (Antonieta Leone RN) Status: Ongoing (Antonieta Leone RN) Outcome: Patient will Verbalize a Sense of Control and/or Acceptance of the Situation (Antonieta Leone RN) Status: Ongoing (Antonieta Leone RN) Outcome: Patient will Identify and Utilize Support Person (Antonieta Leone RN) Status: Ongoing (Antonieta Leone RN) Infection State: Risk For (Antonieta Leone RN) Related To: Surgical Procedures; Invasive Procedures (Antonieta Leone RN) Goal(s): The Patient will be Free of Infection, Vital Signs Stable and Lab Work within Normal Parameters (Antonieta Leone RN) Interventions: Instruct and Reinforce Proper Handwashing, Hygiene, and Care Techniques to Patient and Family; Monitor Vital Signs; Monitor Patient for the Following Signs of Infection: Fever, Abdominal Tenderness, Unusual Discharge; Monitor Aminiotic Fluid, Urine and Lochia for Color and Odor; Observe Wounds, Incisions and Invasive Line Sites for Redness, Drainage and Edema; Assess IV Sites per Hospital Policy; Monitor Lab and Test Results and Notify Provider of Abnormal Findings; Assess Nutritional Status and Promote Good Nutrition (Antonieta Leone RN) Outcome: Patient will Remain Free of Infection (Antonieta Leone RN) Status: Ongoing (Antonieta Leone RN) Outcome: Infection will be Recognized Early to Allow for Prompt Treatment (Antonieta Leone RN) Status: Ongoing (Antonieta Leone RN) Outcome: Patient will have Vital Signs Within Expected Range (Antonieta Leone RN) Status: Ongoing (Antonieta Leone RN) Injury State: Risk For (Antonieta Leone RN) Related To: Anesthesia (Antonieta Leone RN) Goal(s): Patient will Remain Free from Injury (Antonieta Leone RN) Interventions: Monitoring as per Hospital Protocol; Assess Neurological Status; Perform Risk Assessment of Patients with Induction and ; Perform Fall Risk Assessment and Prevention per Hospital Protocol; Perform DVT Risk Assessment and Prophylaxis per Hospital Protocol; Ensure that Oxygen, Suction, and Resuscitation Medications and Equipment are Readily Available; Confirm Patient ID Prior to Procedure(s) and Medication Administration per Hospital Policy (Antonieta Leone RN) Outcome: Successful Fall Risk Prevention (Antonieta Leone RN) Outcome: Patient's Neurological Status will Remain Stable (Antonieta Leone RN) Nutrition State: Risk For (Antonieta Leone RN) Related To: Surgical Procedure (Antonieta Leone RN) Goal(s): Patient will have an Intake of Nutrients Sufficient to Meet Metabolic Needs (Antonieta Leone RN) Interventions: Allow Patient to Plan and Order Diet when Possible (Antonieta Leone RN) Outcome: Patient will Receive Adequate Calories and Fluid Volume to Meet Metabolic Needs (Antonieta Leone RN) Status: Ongoing (Antonieta Leone RN)
--- NOTE | 2016-04-27 06:16 | L&D Flow Sheet ---
LD Flowsheet Datetime Report Generated by CPN: 04/27/2016 06:16 Datetime: 04/26/2016 18:26 NBP Sys/Destiny/Mean (mmHg): 95 (QS system process) : 52 (QS system process) : 71 (QS system process) Pulse: 67 (QS system process) Pulse: 69 (QS system process) Respirations: 16 (Pily Macias RN) SpO2 (%): 100 (QS system process) Temperature (F): 97.8 (Pily Macias RN) Temperature (C): 36.6 (QS system process) Temperature Route: Oral (Pily Macias RN) Pain Scale: 1 (Pily Macias RN) Pain Presence: Constant (Pily Macias RN) Pain Type: Dull (Pily Macias RN) Pain Location: Abdomen (Pily Macias RN) Pain Goal: 2 (Pily Macias RN) Pain Relief Measures: Comfort Measures (Pily Macias RN) Datetime: 04/26/2016 18:21 Pulse: 65 (QS system process) SpO2 (%): 100 (QS system process) Datetime: 04/26/2016 18:16 Pulse: 71 (QS system process) SpO2 (%): 100 (QS system process)
[2016-04-27 07:00] LABS: HEMATOCRIT 28.4 % (36.0-47.0); HEMOGLOBIN 9.4 g/dL (12.0-15.5); HGB HCT DIFFERENCE -0.2; MEAN CORPUSCULAR HEMOGLOBIN 29.3 pg (27.0-33.4); MEAN CORPUSCULAR HGB CONC 33.2 g/dL (32.0-36.0); MEAN CORPUSCULAR VOLUME 88 fl (80-97); RED BLOOD COUNT 3.21 10^6/uL (3.72-5.28); RED CELL DISTRIBUTION WIDTH 14.3 % (11.5-14.0)
[2016-04-27] MEDS: FLUTICASONE PROPIONATE HFA 110 MCG/PUFF 12 GM MDI IH SCH ×2 (07:41→19:31)
--- NOTE | 2016-04-27 09:36 | PDOC PROGRESS REPORT ---
Subjective-OB Subjective: Post Delivery Day: 1 26 year old. Denies any needs at this time, has been up, voiding without difficulty, passing gas, tolerating diet, lochia is stable, pain well controlled. Physical Exam (OB) Vital Signs: Temp Pulse Resp BP Pulse Ox 98.4 F 87 18 92/55 L 98 04/27/16 08:41 04/27/16 08:41 04/27/16 08:41 04/27/16 08:41 04/27/16 08:41 Intake & Output 04/26/16 04/27/16 04/28/16 06:59 06:59 06:59 Output Total 1900 350 Balance -1900 -350 Weight 64.25 kg - PIH/Pre-Eclampsia Clonus: Negative - Dressing Removed: No Incision: Dressing - Lochia Lochia Amount: Scant < 10 ml Lochia Color: Rubra/Red - Abdomen Description: Tender, Soft Hernia Present: No Fundal Description: Firm, Midline Fundal Height: u/u - u/2 Objective-Diagnostic Laboratory: 04/27/16 06:48 04/26/16 04/26/16 04/26/16 10:17 12:58 12:58 WBC 7.7 RBC 3.54 L Hgb 10.4 L Hct 31.2 L MCV 88 MCH 29.3 MCHC 33.2 RDW 14.6 H Plt Count 211 Seg Neutrophils % 70.1 Lymphocytes % 19.2 Monocytes % 6.7 Eosinophils % 3.4 Basophils % 0.6 Absolute Neutrophils 5.4 Absolute Lymphocytes 1.5 Absolute Monocytes 0.5 Absolute Eosinophils 0.3 Absolute Basophils 0.0 Urine Color YELLOW Urine Appearance CLEAR Urine pH 6.0 Ur Specific [place] 1.015 Urine Protein NEGATIVE Urine Glucose (UA) NEGATIVE Urine Ketones TRACE H Urine Blood LARGE H Urine Nitrite NEGATIVE Ur Leukocyte Esterase NEGATIVE Urine WBC (Auto) 1 Urine RBC (Auto) 1 Blood Type O POSITIVE Antibody Screen NEGATIVE 04/27/16 06:48 WBC 10.0 RBC 3.21 L Hgb 9.4 L Hct 28.4 L MCV 88 MCH 29.3 MCHC 33.2 RDW 14.3 H Plt Count 208 Seg Neutrophils % Lymphocytes % Monocytes % Eosinophils % Basophils % Absolute Neutrophils Absolute Lymphocytes Absolute Monocytes Absolute Eosinophils Absolute Basophils Urine Color Urine Appearance Urine pH Ur Specific [place] Urine Protein Urine Glucose (UA) Urine Ketones Urine Blood Urine Nitrite Ur Leukocyte Esterase Urine WBC (Auto) Urine RBC (Auto) Blood Type Antibody Screen Assessment and Plan(PN) - Assessment and Plan (1) delivery delivered Is this a current diagnosis for this admission?: YesPlan: routine post-op care progressive diet and ambulation (2) Marginal placenta previa Is this a current diagnosis for this admission?: Yes (3) Qualifiers: Weeks of gestation: unspecified Qualified Code(s): Z33.1 - state, incidental Is this a current diagnosis for this admission?: Yes (4) S/P repeat low transverse Is this a current diagnosis for this admission?: Yes - Time Spent with Patient Time with patient: Less than 15 minutes Critical Time spent with patient: Less than 15 minutes Medications reviewed and adjusted accordingly: Yes - Disposition Anticipated Discharge: Home Within: within 48 hours
[2016-04-27] MEDS: CITALOPRAM HYDROBROMIDE 20 MG TABLET PO SCH ×2 (09:46→21:14)
[2016-04-27] MEDS: DOCUSATE SODIUM 100 MG CAPSULE PO SCH ×2 (09:46→17:50)
[2016-04-27] MEDS: PRENATAL VITAMIN W-O CA NO5/FE FUMARATE/FA CAPSULE PO SCH (09:46)
[2016-04-27] MEDS: OXYCODONE-ACETAMINOPHEN 5-325 MG TABLET PO PRN (19:41)
[2016-04-27] MEDS ORDERED: LOPERAMIDE HCL 2 MG CAPSULE PO PRN (20:59)
[2016-04-27] MEDS ORDERED: LOPERAMIDE HCL 2 MG CAPSULE PO ONE (21:00)
[2016-04-27] MEDS: IBUPROFEN 800 MG TABLET PO SCH (23:33)
[2016-04-28] MEDS: IBUPROFEN 800 MG TABLET PO SCH ×3 (05:05→18:56)
[2016-04-28] MEDS: FLUTICASONE PROPIONATE HFA 110 MCG/PUFF 12 GM MDI IH SCH (07:22)
[2016-04-28 09:19] VITALS: BP 98/50
[2016-04-28] MEDS: CITALOPRAM HYDROBROMIDE 20 MG TABLET PO SCH (09:39)
[2016-04-28] MEDS: PRENATAL VITAMIN W-O CA NO5/FE FUMARATE/FA CAPSULE PO SCH (09:39)
[2016-04-28] MEDS: DOCUSATE SODIUM 100 MG CAPSULE PO SCH ×2 (09:39→18:56)
--- NOTE | 2016-04-28 09:56 | PDOC DISCHARGE SUMMARY ---
Final Diagnosis Discharge Date: 04/28/16 - Final Diagnosis (1) delivery delivered Is this a current diagnosis for this admission?: Yes (2) Marginal placenta previa Is this a current diagnosis for this admission?: Yes (3) S/P repeat low transverse Is this a current diagnosis for this admission?: Yes Discharge Data - Discharge Medication Home Medications: Citalopram Hydrobromide [Celexa 10 mg Tablet] 40 mg PO DAILY 07/15/14 Vit#96/Ferrous Fum/FA [ Tablet] 1 tab PO DAILY 07/15/14 Albuterol Sulfate [Albuterol Sulfate 5mg/1 mL] 1 puff IH PRN PRN 07/25/14 Fluticasone Propionate [Flovent HFA 220 mcg MDI] 2 puff IH Q12 04/26/16 Reason(s) for Admission: Ceasarean Section-Repeat Procedures: None Intrapartum Procedure(s): : Low Cervical, Transverse - Diagnosis Test Laboratory: Temp Pulse Resp BP Pulse Ox 97.4 F 71 16 98/50 L 98 04/28/16 09:14 04/28/16 09:14 04/28/16 09:14 04/28/16 09:14 04/28/16 09:14 04/26/16 04/26/16 04/27/16 10:17 12:58 06:48 RBC 3.54 L 3.21 L Hgb 10.4 L 9.4 L Hct 31.2 L 28.4 L Urine Opiates Screen NEGATIVE - Discharge information/Instructions Discharge Activity: Activity As Tolerated, No Driving, No Lifting Over 10 Pounds , No Lifting/Push/Pulling, Pelvic Rest, No tub bath Discharge Diet: Regular Disposition: HOME, SELF-CARE Follow up with: [facility] in: 1 - post repeat c/s
== END 2016-04-28 21:24 | disposition home or self-care (01) | DRG 765 ==
LOC: LC 10:07 → LR 12:54 → 2S 18:45
PROVIDERS: ADMIT Obstetrics & Gynecology; ATTEND Obstetrics & Gynecology
PROC: 10D00Z1 Extraction of Products of Conception, Low, Open Approach (ICD-10-PCS; principal; 2016-04-26)
PROC: 0UB70ZZ Excision of Bilateral Fallopian Tubes, Open Approach (ICD-10-PCS; 2016-04-26)
PROC: 10907ZC Drainage of Amniotic Fluid, Therapeutic from Products of Conception, Via Natural or Artificial Opening (ICD-10-PCS; 2016-04-26)
PROC: 4A1HXCZ Monitoring of Products of Conception, Cardiac Rate, External Approach (ICD-10-PCS; 2016-04-26)
DX: O34.211 Maternal care for low transverse scar from previous cesarean delivery (principal); O60.14X0 Preterm labor third trimester with preterm delivery third trimester, not applicable or unspecified; O44.23 Partial placenta previa NOS or without hemorrhage, third trimester; O99.344 Other mental disorders complicating childbirth; F32.9 Major depressive disorder, single episode, unspecified; O99.513 Diseases of the respiratory system complicating pregnancy, third trimester; J45.909 Unspecified asthma, uncomplicated; F41.9 Anxiety disorder, unspecified; Z28.21 Immunization not carried out because of patient refusal; Z91.040 Latex allergy status; Z88.8 Allergy status to other drugs, medicaments and biological substances; Z30.2 Encounter for sterilization; Z3A.36 36 weeks gestation of pregnancy; Z37.0 Single live birth
CPT/HCPCS: 1961; 36415; 59025; 80307; 81001; 85025; 85027; 86592; 86850; 86900; 86901; 87491; 87493; 87591; 88302; 94799; J0690; J1885; J2175; J2250; J2270; J2370; J2405; J2590; J3010; J3490

== ENCOUNTER 2016-09-17 17:45 | Emergency (ER) | payer BC, OTHER ==
[2016-09-17] MEDS ORDERED: IBUPROFEN 600 MG TABLET PO ONE (19:14)
[2016-09-17] MEDS ORDERED: HYDROCODONE/ACETAMINOPHEN 5-325 MG 6 TAB/DSPK PO PRN (19:34)
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
[2016-09-17 19:48] VITALS: BP 114/50
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
== END 2016-09-17 19:49 | disposition home or self-care (01) ==
LOC: ER 17:45
DX: S46.911A Strain of unspecified muscle, fascia and tendon at shoulder and upper arm level, right arm, initial encounter (principal); V43.52XA Car driver injured in collision with other type car in traffic accident, initial encounter; Y93.89 Activity, other specified; M25.511 Pain in right shoulder; M79.1 Myalgia; J45.909 Unspecified asthma, uncomplicated; Z88.8 Allergy status to other drugs, medicaments and biological substances; Z91.040 Latex allergy status
CPT/HCPCS: 99284

== ENCOUNTER 2016-11-28 19:11 | Emergency (ER) | payer BC, OTHER ==
[2016-11-28 19:42] VITALS: BP 110/63
[2016-11-28] MEDS ORDERED: AMPICILLIN SOD/SULBACTAM 3 GM VIAL IV ONE (21:59)
[2016-11-28 23:02] LABS: ABSOLUTE EOSINOPHILS # (AUTO) 0.4 10^3/uL (0.0-0.6); ABSOLUTE MONOCYTES (AUTO) 0.6 10^3/uL (0.1-1.4); ABSOLUTE NEUT (AUTO) 4.7 10^3/uL (1.7-8.2); BASOPHILS % (AUTO) 0.5 % (0-2); EOSINOPHILS % (AUTO) 4.7 % (0-6); HEMATOCRIT 41.1 % (36.0-47.0); HGB HCT DIFFERENCE 0.9; LYMPHOCYTES % (AUTO) 26.3 % (13-45); MEAN CORPUSCULAR HEMOGLOBIN 30.9 pg (27.0-33.4); MEAN CORPUSCULAR HGB CONC 34.1 g/dL (32.0-36.0); MEAN CORPUSCULAR VOLUME 91 fl (80-97); MONOCYTES % (AUTO) 7.3 % (3-13); RED BLOOD COUNT 4.55 10^6/uL (3.72-5.28); RED CELL DISTRIBUTION WIDTH 14.1 % (11.5-14.0); SEGMENTED NEUTROPHILS % (AUTO) 61.2 % (42-78); WHITE BLOOD COUNT 7.7 10^3/uL (4.0-10.5)
--- NOTE | 2016-11-28 23:58 | ER Document Report ---
ED Animal Bite - General Chief Complaint: Cat Bite Stated Complaint: POSSIBLE CAT BITE RIGHT HAND Time Seen by Provider: 11/28/16 21:50 Mode of Arrival: Ambulatory Information source: Patient Notes: Patient is a 18-year-old female comes emergency room complaining of having a cat bite. Patient states that her cat and her dog got into a fight and the cat bit into her left ring finger distal tip and went directly through the nail and through the pad so was a through and through bite. This occurred about 2:30 AM this morning and patient has swelling and pain in the distal tip of her left ring finger tonight. TRAVEL OUTSIDE OF THE [place] IN LAST 30 DAYS: No - HPI Location of injury: LLE Severity of injury: Scratched, Bitten Onset: This morning Where did incident occur: Patient's own home Quality of pain: Achy, Pressure, Sharp, Throbbing. denies: No pain Pain Level: 3 Severity: Moderate Context of attack: "Unprovoked" attack, Animals fighting Type of animal: Cat Appearance of animal: Appeared well Animal's immunizations: UTD Animal captured or known: Yes Animal control notified: No Animal control form completed: No - Related Data Allergies/Adverse Reactions: fluoxetine HCl [From Prozac] Allergy (Severe, Verified 09/17/16 17:58) Anaphylaxis latex [Latex] Allergy (Intermediate, Verified 09/17/16 17:58) Generalized Itching Past Medical History - General Information source: Patient - Social History Smoking Status: Never Smoker Lives with: Family, Spouse/Significant other Family History: Reviewed & Not Pertinent Patient has suicidal ideation: No Patient has homicidal ideation: No - Medical History Medical History: Negative - Past Medical History Cardiac Medical History: Reports: None Pulmonary Medical History: Reports: Hx Asthma EENT Medical History: Reports: None Neurological Medical History: Reports: None Endocrine Medical History: Reports: None Renal/ Medical History: Reports: None. Denies: Hx Peritoneal Dialysis Malignancy Medical History: Reports: None GI Medical History: Reports: None Skin Medical History: Reports None Psychiatric Medical History: Reports: None, Hx Depression - anxiety Infectious Medical History: Reports: None Surgical Hx: Negative Past Surgical History: Reports: None, Hx Section Review of Systems - Review of Systems Constitutional: No symptoms reported EENT: No symptoms reported Cardiovascular: No symptoms reported Respiratory: No symptoms reported Gastrointestinal: No symptoms reported Genitourinary: No symptoms reported Female Genitourinary: No symptoms reported Musculoskeletal: No symptoms reported Skin: See HPI, Change in color Hematologic/Lymphatic: No symptoms reported Neurological/Psychological: No symptoms reported, See HPI -: Yes All other systems reviewed and negative Physical Exam - Vital signs Vitals: Temp Pulse Resp BP Pulse Ox 97.6 F 79 18 110/63 97 11/28/16 19:36 11/28/16 19:36 11/28/16 19:36 11/28/16 19:36 11/28/16 19:36 - Notes Notes: Patient is awake alert and oriented 4 slightly uncomfortable appearing - General General appearance: Alert In distress: None - HEENT Head: Normocephalic, Atraumatic Mucous membranes: Normal, Moist Pharynx: Normal Neck: Normal - Respiratory Respiratory status: No respiratory distress Chest status: Nontender Breath sounds: Normal. No: Rhonchi, Stridor, Wheezing Chest palpation: Normal - Cardiovascular Rhythm: Regular Heart sounds: Normal auscultation Murmur: No - Extremities General upper extremity: Tender. No: Normal inspection, Normal ROM Hand: Tender, Other - Examination patient's left hand shows that she has moderate swelling at the distal tip of her left ring finger. She has a through and through bite tracie that actually pierces the nail and goes through to the pad of the finger. There is moderate tenderness to palpation she still has good cap refill in the area she has good flexion and extension currently. There is no sign of pus at this time although moderate amount of swelling. Patient has good pulses on the radial and ulnar side of that left wrist. Examination of her right wrist shows that she has been also bitten originally by the cat that area has a cellulitis with the extension on the medial side of the wrist running anteriorly up about 6 cm and dorsally back down about 8 cm. It is been outlined with a skin marker. There is no sign of an abscess at this time. There is no lymphangitis noted in the area at this time. - Skin Skin Temperature: Warm Skin Moisture: Moist Skin Color: Pale, Erythema, Other - See above bilaterally Skin Turgor: Elastic Skin irregularity: Erythema, Rash. negative: Abscess, Tender indurated area Course - Vital Signs Vital signs: Temp Pulse Resp BP Pulse Ox 97.6 F 79 18 110/63 97 11/28/16 19:36 11/28/16 19:36 11/28/16 19:36 11/28/16 19:36 11/28/16 19:36 - Laboratory Result Diagrams: 11/28/16 22:32 Laboratory results interpreted by me: 11/28/16 22:32 RDW 14.1 H - Transfer of Care Notes: 11/28/16 23:55 Dr WILLINGHAM looked at patient's and we discussed patient in depth. We gave her the IV so Bactrim and will place her on Augmentin p.o. she will return to ER for a recheck in 48 hours. She will return sooner if it does not appear to be healing well. Discharge - Discharge Clinical Impression: Cat bite of finger Qualifiers: Encounter type: initial encounter Qualified Code(s): S61.259A - Open bite of unspecified finger without damage to nail, initial encounter Condition: Stable Disposition: HOME, SELF-CARE Additional Instructions: Animal Bites Animal bites are often heavily contaminated with bacteria. In spite of thorough cleansing and proper treatment, these wounds frequently become infected. Bite wounds of the hands are especially prone to complications. Bites are dressed, if possible. Large wounds may require suturing after internal cleansing. Because of infection risk, some large wounds must remain unstitched. Your doctor is trained to advise you on the best treatment for your bite. Call the doctor at once if the wound becomes red, swollen, warm, increasingly painful, or if it begins to drain. Danger signs also include red streaks up the involved extremity, swollen glands in the groin or under the arm , or fever and chills. The risk of rabies from domestic animals is very low. Bats, sick animals, and wild animals may expose you to rabies. The physician, or the health department, will inform you if you will need to receive the rabies vaccine. Home and take medications until finished. Soak every day in antibiotic warm water. May use an antibiotic Band-Aid as well. Return to ER in 48 hours for recheck or return sooner if it appears not to be healing well. Prescriptions: Amox Tr/Potassium Clavulanate [Augmentin 875-125 Tablet] 1 tab PO BID 14 Days # 28 tablet Fluconazole [Diflucan] 150 mg PO ONCE PRN #1 tablet PRN Reason: Hydrocodone/Acetaminophen [[place] 5-325 mg Tablet] 1 tab PO Q6 PRN #12 tablet PRN Reason: Referrals: TRAN JACK, VET[facility] [employer] INSPECTOR-C [Primary Care Provider] - Follow up as needed
[2016-11-29] MEDS ORDERED: DIPH/PERTUSS(ACELL)/TETANUS VAC/PF 0.5 ML SYR (>=10YO) IM ONE (00:15)
== END 2016-11-29 01:11 | disposition home or self-care (01) ==
LOC: ER 19:11
DX: S61.259A Open bite of unspecified finger without damage to nail, initial encounter (principal); W55.01XA Bitten by cat, initial encounter
CPT/HCPCS: 99283; 96365; 36415; 87040; 85025; J0295